=== PATIENT | male | born 1965 | race African-American/Black ===

== ENCOUNTER 2020-12-10 15:40 | Emergency (ER) | payer OTHER ==
[~2020-12-10] VITALS: Ht 188 cm; Wt 88.5 kg
[2020-12-10 15:41] VITALS: BP 149/103
[2020-12-10] MEDS ORDERED: NORCO5 PO (16:55)
[2020-12-10] MEDS ORDERED: FLEXERIL PO (16:55)
== END 2020-12-10 17:35 | disposition home or self-care (01) ==
LOC: ER 15:40
DX: S82.092A Other fracture of left patella, initial encounter for closed fracture (principal); S16.1XXA Strain of muscle, fascia and tendon at neck level, initial encounter; V43.52XA Car driver injured in collision with other type car in traffic accident, initial encounter; Y93.I9 Activity, other involving external motion; Y92.488 Other paved roadways as the place of occurrence of the external cause; Y99.8 Other external cause status